=== PATIENT | female | born 1985 | race Caucasian/White ===

== ENCOUNTER 2022-10-23 15:17 | Outpatient (CLI) | payer OTHER, SELFPAY ==
--- NOTE | ~2022-10-23 | CT_ITS ---
EXAMINATION: CT pelvis wo con DATE: 10/23/2022 15:37 INDICATION: May Thurner syndrome. TECHNIQUE: Computed tomography (CT) of the pelvis was performed without intravenous contrast. Automat ed exposure control and iterative reconstruction technique were employed. The dose-length product was 495.19 mGy-cm. COMPARISON: None FINDINGS: There are no dilated loops of bowel. There is a stent in left common iliac and external rosita ac veins. Radiodense material spanning 8 cm within this stent may be calcifications or a collapsed sm aller stent. There are enlarged collateral veins in left inguinal region and left pelvis. There are n o pathologically enlarged lymph nodes. There is no free intraperitoneal fluid. There is severe lower lumbar spondylosis. IMPRESSION: 1. Stent in left common iliac and left external iliac veins. Radiodense material spanning 8 cm within this stent may be calcifications or a collapsed smaller stent. Consider CT with contrast to evaluate patency. 2. Enlarged collateral veins in left inguinal region and left pelvis. Reviewed, dictated and finalized at location A. [employer]PERATOR IMPRESSION: 1. Stent in left common iliac and left external iliac veins. Radiodense materia l spanning 8 cm within this stent may be calcifications or a collapsed smaller stent. Consider CT with contrast to evaluate patency. 2. Enlarged collateral veins in left inguinal region and left pelvis.
== END 2022-10-23 15:18 | disposition home or self-care (01) ==
DX: I87.1 Compression of vein (principal)
CPT/HCPCS: 72192